=== PATIENT | male | born 1950 | race Caucasian/White ===

== ENCOUNTER 2017-05-05 17:37 | Emergency (ER) | payer OTHER ==
[~2017-05-05] VITALS: Ht 182.9 cm; Wt 90.7 kg
[2017-05-05 18:26] LABS: Basophils # (auto) 0.1 uL; Basophils % (auto) 0.6 % (0.0-2.0); Eosinophils # (auto) 0.1 uL; Eosinophils % (auto) 0.5 % (0.0-7.0); Hematocrit 43.6 % (41.0-53.0); Lymphocytes # (auto) 1.1 uL; Lymphocytes % (auto) 9.8 % (10.0-50.0); Mean Corpuscular Hemoglobin 30.8 pg (28.0-32.0); Mean Corpuscular Hgb Conc. 34.5 g/dL (32.0-36.0); Mean Corpuscular Volume 89.2 fL (80.0-100.0); Monocytes # (auto) 0.6 uL; Monocytes % (auto) 5.7 % (0.0-12.0); Neutrophils # (auto) 9.1 uL; Neutrophils % (auto) 83.4 % (37.0-80.0); Platelet Count (auto) 160 10^3/uL (140-450); Red Blood Cells 4.89 10^6/uL (4.5-5.90); Red Cell Distribution Width 13.6 % (11.8-14.3)
[2017-05-05 18:34] LABS: Alanine Aminotransferase 14 U/L (16-61); Albumin 4.2 g/dL (3.4-5.0); Anion Gap 9 (5-15); Aspartate Aminotransferase 16 U/L (15-37); BUN/Creatinine Ratio 18.8; Blood Alcohol < 3.0 mg/dL (0-5); Blood Urea Nitrogen 18 mg/dL (7-18); Calcium 9.2 mg/dL (8.5-10.1); Carbon Dioxide 25 mmol/L (21-32); Chloride 107 mmol/L (98-107); GFR African American 100 mL/min; GFR Non-African American 83 mL/min; Glucose 133 mg/dL (74-106); Magnesium 2.2 mg/dL (1.6-2.6); Potassium 3.6 mmol/L (3.5-5.1); Sodium 141 mmol/L (136-145)
[2017-05-05 18:39] LABS: Alkaline Phosphatase 57 U/L (45-117); Bilirubin, Total 0.8 mg/dL (0.2-1.0); Total Protein 7.9 g/dL (6.4-8.2)
[2017-05-05] MEDS ORDERED: SODIUM CHLORIDE 0.9% 1,000 ML IV ONE (22:00)
[2017-05-06 01:59] VITALS: BP 112/58
== END 2017-05-06 06:53 | disposition home or self-care (01) ==
LOC: ER 17:40 → EDBD 17:40 → ER 05-06 06:53
DX: F41.9 Anxiety disorder, unspecified (principal); F03.90 Unspecified dementia, unspecified severity, without behavioral disturbance, psychotic disturbance, mood disturbance, and anxiety; E11.9 Type 2 diabetes mellitus without complications; G20 Parkinson's disease; F43.10 Post-traumatic stress disorder, unspecified
CPT/HCPCS: 36415; 70450; 71010; 80053; 80320; 82962; 83735; 84484; 85025; 93005; 96360; 96361; 99285; J7030